=== PATIENT | male | born 1950 | race Caucasian/White ===

== ENCOUNTER 2019-02-27 14:16 | Emergency (ER) | payer OTHER ==
[~2019-02-27] VITALS: Ht 185.4 cm; Wt 90.0 kg
[2019-02-27 14:19] VITALS: Ht 185.4 cm; Wt 90.0 kg
[2019-02-27] MEDS ORDERED: ZYLOPRIM100 MG PO (14:21)
[2019-02-27] MEDS ORDERED: LIPITOR10 MG PO (14:22)
[2019-02-27] MEDS ORDERED: LISINOPRIL10 MG PO (14:23)
[2019-02-27] MEDS ORDERED: AUGMENTIN 875-11 TAB PO (18:00)
[2019-02-27 18:50] VITALS: BP 162/73
== END 2019-02-27 18:51 | disposition other institution (70) ==
LOC: D.ER 14:16
DX: S61.211A Laceration without foreign body of left index finger without damage to nail, initial encounter (principal); S61.213A Laceration without foreign body of left middle finger without damage to nail, initial encounter; S61.215A Laceration without foreign body of left ring finger without damage to nail, initial encounter; W29.8XXA Contact with other powered hand tools and household machinery, initial encounter; Y93.89 Activity, other specified; Y92.89 Other specified places as the place of occurrence of the external cause

== ENCOUNTER 2020-10-29 11:04 | Inpatient (IN) | payer MEDICARE ==
[~2020-10-29] VITALS: Ht 185.4 cm; Wt 86.2 kg
[~2020-10-29 11:04] MED LIST: AUGMENTIN 875-11 TAB PO; LIPITOR10 MG PO; LISINOPRIL10 MG PO; ZYLOPRIM100 MG PO
[2020-10-29 11:35] LABS: BASOPHILS 0.2 % (0-2); EOSINOPHILS 0.1 % (0-7); HEMATOCRIT 48.4 % (42.0-54.0); HEMOGLOBIN 16.8 g/dL (13.5-17.5); IMMATURE GRANULOCYTES 0.3 % (0-5); LYMPHOCYTE ABS# 1.65 10x3/uL (1.32-3.57); LYMPHOCYTES 9.5 % (15-50); MCH 32.3 pg (26.0-34.0); MCHC 34.7 g/dL (31.0-37.0); MCV 93.1 fL (80.0-100.0); MEAN PLATELET VOLUME 10.3 fL (7.4-10.4); MONOCYTES 11.6 % (2-11); NEUTROPHIL ABS# 13.64 10x3/uL (1.78-5.38); NEUTROPHILS 78.3 % (40-80); PLATELET COUNT 230 10x3/uL (130-400); RDW 12.7 % (11.5-14.5); WBC 17.4 10x3/uL (4.8-10.8)
[2020-10-29 11:43] LABS: CALC OSMOLALITY 280 mosm/kg (275-300); CALCIUM 10.2 mg/dL (8.5-10.1); CARBON DIOXIDE 25.3 mmol/L (21.0-32.0); CHLORIDE - SERUM 99 mmol/L (98-107); CREATININE - SERUM 0.9 mg/dL (0.6-1.3); GLUCOSE 147 mg/dL (74-106); POTASSIUM - SERUM 4.8 mmol/L (3.5-5.1); SODIUM 138 mmol/L (136-145); UREA NITROGEN 18 mg/dL (7-18); eGFR NON AFRICAN AMERICAN 89 mL/min (90-120)
[2020-10-29 11:52] LABS: ALBUMIN 4.1 g/dL (3.4-5.0); ALKALINE PHOSPHATASE 95 U/L (30-120); ALT (SGPT) 41 U/L (10-68); AMYLASE - SERUM 54 U/L (25-115); BILIRUBIN - TOTAL 0.98 mg/dL (0.2-1.3); LIPASE 164 U/L (73-393); PROTEIN - SERUM 8.3 g/dL (6.4-8.2); TROPONIN-I 0.026 ng/mL (0.000-0.060)
--- NOTE | 2020-10-29 13:00 | NUR ---
PUT UNABLE TO VOID, DOES NOT WANT CATHETER, ANP NOTIFIED AT THIS TIME.
[2020-10-29] MEDS ORDERED: ZOFRAN ODT4 MG/UDTAB PO (13:17)
[2020-10-29] MEDS ORDERED: CHRONULAC30 ML PO (13:17)
[2020-10-29 16:03] VITALS: BP 137/82
[2020-10-29 16:33] VITALS: BP 155/93
[2020-10-29 16:37] VITALS: BP 155/93; BMI 25.1
--- NOTE | 2020-10-29 16:41 | NUR ---
TO ROOM FROM ER VIA STRETCHER. UP WITH 2 ASSIST FROM STRETCHER TO BED. VERY WEAK. ROOM AIR. DENIES NEEDS AT THIS TIME. AT BEDSIDE. FREE FROM SIGNS OF DISTRESS. CALL LIGHT IN REACH. BED LOW POSITION, WILL CONTINUE TO MONITOR.
[2020-10-29 20:23] VITALS: BP 138/87
--- NOTE | 2020-10-30 03:10 | NUR ---
PATIENT HAD WALKED IN THE [place] WITH THE TECH, HIS PAIN WAS MANAGED WITH THE PRESCRIBED PAIN MEDICATIONS AND NAUSEA MEDS. HE IS CURRENTLY RESTING IN BED WITH HIS EYES CLOSED.
[2020-10-30 04:30] VITALS: BP 136/84
[2020-10-30 06:38] LABS: BASOPHILS 0.2 % (0-2); EOSINOPHILS 0.2 % (0-7); HEMATOCRIT 48.3 % (42.0-54.0); HEMOGLOBIN 16.2 g/dL (13.5-17.5); IMMATURE GRANULOCYTES 0.2 % (0-5); LYMPHOCYTE ABS# 1.53 10x3/uL (1.32-3.57); LYMPHOCYTES 11.6 % (15-50); MCH 31.8 pg (26.0-34.0); MCHC 33.5 g/dL (31.0-37.0); MCV 94.7 fL (80.0-100.0); MEAN PLATELET VOLUME 10.1 fL (7.4-10.4); MONOCYTES 10.3 % (2-11); NEUTROPHIL ABS# 10.29 10x3/uL (1.78-5.38); NEUTROPHILS 77.5 % (40-80); PLATELET COUNT 223 10x3/uL (130-400); RDW 12.8 % (11.5-14.5); WBC 13.2 10x3/uL (4.8-10.8)
[2020-10-30 06:44] LABS: BILIRUBIN NEGATIVE (NEGATIVE); KETONE NEGATIVE (NEGATIVE); NITRITE NEGATIVE (NEGATIVE); UROBILINOGEN NORMAL mg/dL (< 2)
[2020-10-30 07:05] LABS: ALBUMIN 3.2 g/dL (3.4-5.0); ALKALINE PHOSPHATASE 81 U/L (30-120); BILIRUBIN - TOTAL 0.67 mg/dL (0.2-1.3); CALC OSMOLALITY 281 mosm/kg (275-300); CALCIUM 9.3 mg/dL (8.5-10.1); CHLORIDE - SERUM 103 mmol/L (98-107); CREATININE - SERUM 0.8 mg/dL (0.6-1.3); GLUCOSE 121 mg/dL (74-106); MAGNESIUM - SERUM 2.2 mg/dL (1.8-2.4); PHOSPHOROUS 3.8 mg/dL (2.5-4.9); POTASSIUM - SERUM 4.6 mmol/L (3.5-5.1); PROTEIN - SERUM 7.1 g/dL (6.4-8.2); SODIUM 140 mmol/L (136-145); UREA NITROGEN 18 mg/dL (7-18); eGFR NON AFRICAN AMERICAN > 90 mL/min (90-120)
[2020-10-30 07:07] LABS: ALT (SGPT) 26 U/L (10-68)
--- NOTE | 2020-10-30 08:00 | NUR ---
RESTING IN BED WITH EYES OPEN, ALERT AND ORIENTED, AT THE BEDSIDE. IV LOCATED TO LEFT WRIST CURRENTLY RUNNING NS @ 75ML. NO CURRENT S/S OF DISTRESS, DENIES NEEDS AT THIS TIME, WILL CONT TO MONITOR.
[2020-10-30 08:15] VITALS: BP 136/83
[2020-10-30 12:57] VITALS: BMI 25.0
[2020-10-30 13:00] VITALS: BP 124/70
[2020-10-30 16:46] VITALS: BP 123/79; BP 125/82
--- NOTE | 2020-10-31 03:38 | NUR ---
PAIN WAS MANAGED WITH THE PRESCRIBED PAIN MEDICATIONS, WAS AT BEDSIDE, HE TOOK A SHOWER, HE IS CURRENTLY RESTING IN BED WITH HIS EYES CLOSED.
[2020-10-31 07:26] LABS: BASOPHILS 0.5 % (0-2); EOSINOPHILS 1.9 % (0-7); HEMATOCRIT 41.8 % (42.0-54.0); HEMOGLOBIN 13.8 g/dL (13.5-17.5); IMMATURE GRANULOCYTES 0.1 % (0-5); LYMPHOCYTE ABS# 1.75 10x3/uL (1.32-3.57); LYMPHOCYTES 22.2 % (15-50); MCH 31.5 pg (26.0-34.0); MCV 95.4 fL (80.0-100.0); MEAN PLATELET VOLUME 9.9 fL (7.4-10.4); MONOCYTES 11.9 % (2-11); NEUTROPHIL ABS# 4.98 10x3/uL (1.78-5.38); NEUTROPHILS 63.4 % (40-80); PLATELET COUNT 206 10x3/uL (130-400); RBC 4.38 10x6/uL (4.20-6.10); RDW 12.8 % (11.5-14.5)
[2020-10-31 07:28] LABS: WBC 7.9 10x3/uL (4.8-10.8)
[2020-10-31 07:53] LABS: ALBUMIN 2.9 g/dL (3.4-5.0); ALKALINE PHOSPHATASE 73 U/L (30-120); ALT (SGPT) 26 U/L (10-68); BILIRUBIN - TOTAL 0.65 mg/dL (0.2-1.3); CALC OSMOLALITY 283 mosm/kg (275-300); CALCIUM 8.4 mg/dL (8.5-10.1); CARBON DIOXIDE 28.4 mmol/L (21.0-32.0); CHLORIDE - SERUM 106 mmol/L (98-107); CREATININE - SERUM 0.7 mg/dL (0.6-1.3); GLUCOSE 90 mg/dL (74-106); PHOSPHOROUS 3.1 mg/dL (2.5-4.9); POTASSIUM - SERUM 3.8 mmol/L (3.5-5.1); PROTEIN - SERUM 5.9 g/dL (6.4-8.2); SODIUM 142 mmol/L (136-145); UREA NITROGEN 15 mg/dL (7-18); eGFR NON AFRICAN AMERICAN > 90 mL/min (90-120)
[2020-10-31 08:56] VITALS: BP 164/93
[2020-10-31] MEDS ORDERED: MIRALAX17 GM PO (10:28)
[2020-10-31] MEDS ORDERED: METHOCARBAMOL500 MG PO (10:28)
[2020-10-31] MEDS ORDERED: COLACE100 MG PO (10:51)
[2020-10-31 12:58] VITALS: BP 147/93
--- NOTE | 2020-10-31 13:03 | NUR ---
I have reviewed this patient and I concur with the Shift Assessment completed by the Licensed Practical Nurse today this shift.
--- NOTE | 2020-10-31 13:55 | NUR ---
patient refused pt stated he was leaving today and didnt want to walk bc of him having so many bowel movments
[2020-10-31 14:57] VITALS: Ht 185.4 cm; Wt 86.2 kg
--- NOTE | 2020-10-31 15:19 | NUR ---
DC HOME AT THIS TIME WITH ALL PERSONAL BELONGING. VOICES UNDERSTANDING OF DC INSTRUCTIONS. AT BEDSIDE. IV DC. STABLE CONDITION UPON DEPARTURE.
== END 2020-10-31 15:20 | disposition home or self-care (01) | DRG 389 ==
LOC: D.ER 11:04 → D.MS 15:40
PROVIDERS: Emergency Medicine; Family Medicine; Surgery; ADMIT Emergency Medicine; ATTEND Emergency Medicine
DX: K56.609 Unspecified intestinal obstruction, unspecified as to partial versus complete obstruction (principal); M48.56XA Collapsed vertebra, not elsewhere classified, lumbar region, initial encounter for fracture; G89.29 Other chronic pain; M54.5 Low back pain; I10 Essential (primary) hypertension; E78.5 Hyperlipidemia, unspecified; G71.00 Muscular dystrophy, unspecified; M54.16 Radiculopathy, lumbar region